=== PATIENT | male | born 1935 | race Caucasian/White ===

== ENCOUNTER 2018-08-25 15:21 | Emergency (ER) | payer BC ==
[~2018-08-25] VITALS: Ht 167.6 cm; Wt 72.6 kg
[2018-08-25 15:34] VITALS: Ht 167.6 cm; Wt 72.6 kg
[2018-08-25 18:01] VITALS: BP 182/88
== END 2018-08-25 18:04 | disposition home or self-care (01) ==
LOC: ED 15:21
DX: S20.212A Contusion of left front wall of thorax, initial encounter (principal); S49.82XA Other specified injuries of left shoulder and upper arm, initial encounter; I10 Essential (primary) hypertension; V43.52XA Car driver injured in collision with other type car in traffic accident, initial encounter; Y93.I9 Activity, other involving external motion; Y92.413 State road as the place of occurrence of the external cause; Y99.8 Other external cause status